=== PATIENT | male | born 1950 | race Caucasian/White ===

== ENCOUNTER 2018-05-06 12:21 | Observation (INO) ==
--- NOTE | 2018-05-06 12:45 | ED ---
HPI General Chief Complaint: Chest Pain Stated Complaint: Chest pain, Lt arm pain Time Seen by Provider: 05/06/18 12:40 Source: patient Mode of arrival: ambulatory Limitations: no limitations History of Present Illness HPI narrative: primary care doctors are Alex Dangelo. Control Engineer is Dr. England Patient has a past medical history significant for cardiac stent x3 as well as triple CABG Patient states that on 100 this morning he had chest pressure associated with pounding palpitations and radiation to his left upper extremity he presented to [place] doctors where he had an EKG and apparently was told that if it recurs to come to the emergency department. Patient states that while he is here he mentioned that he had a fall and landed on his right hip and has had pain ever since. MD complaint: Reports chest pain STEMI Alert: No Onset (ago): hour(s) (3) Duration: intermittent Onset: during rest Pain location: Reports substernal Severity: moderate Quality: Reports heaviness Pain radiation: Reports LUE Relieving factors: nothing Exacerbating factors: nothing Associated symptoms: Reports diaphoresis Related Data Home Medications Medication Instructions Recorded Confirmed Xarelto 05/06/18 albuterol sulfate 05/06/18 hydrocodone-acetaminophen [[place]] 05/06/18 prednisone 20 mg PO DAILY 05/06/18 05/06/18 Allergies Allergy/AdvReac Type Severity Reaction Status Date / Time moxifloxacin [From Avelox] Allergy Anaphylaxis Verified 05/06/18 12:28 penicillin G Allergy Hives Verified 05/06/18 12:28 sulfamethoxazole Allergy Hives Verified 05/06/18 12:28 [From Bactrim] trimethoprim [From Bactrim] Allergy Hives Verified 05/06/18 12:28 Review of Systems ROS: all other systems reviewed are negative PMFSH History History Provided By: Patient Medical History Medical History History of COPD (Acute) History of chronic pain (Acute) History of depression (Acute) History of myocardial infarction (Acute) Surgical History Surgical History History of heart artery stent (Acute) History of heart bypass surgery (Acute) Social History Social History Substance History: No History of Abuse Smoking Status: Former smoker How Often Do You Have a Drink Containing Alcohol: 2 to 4 times a month Recent Travel in [facility] within the Last 8 Weeks: No Recent Out of Country Travel within the Last 8 Weeks: No Exam Narrative Exam Narrative: GENERAL: elderly male in no apparent distress. SKIN: Warm and dry. HEAD: Atraumatic. Normocephalic. EYES: Pupils equal and round. No scleral icterus. No injection or drainage. ENT: No nasal bleeding or discharge. Mucous membranes pink and moist. NECK: Trachea midline. No JVD. CARDIOVASCULAR: Regular rate and rhythm. no rubs or gallops RESPIRATORY: No accessory muscle use. Clear to auscultation. Breath sounds equal bilaterally. GASTROINTESTINAL: Abdomen soft, non-tender, nondistended. No rebound or guarding MUSCULOSKELETAL: Extremities without clubbing, cyanosis, or edema. No obvious deformities. NEUROLOGICAL: Awake and alert. No obvious cranial nerve deficits. Motor grossly within normal limits. Five out of 5 muscle strength in the arms and legs. Normal speech. PSYCHIATRIC: Appropriate mood and affect; insight and judgment normal. Course Initial Documented Vital Signs Temperature 98 F 05/06/18 12:28 Pulse Rate 73 05/06/18 12:28 Respiratory Rate 20 05/06/18 12:28 Blood Pressure 158/81 H 05/06/18 12:28 Pulse Oximetry 98 05/06/18 12:28 Last Documented Vital Signs Temperature 98 F 05/06/18 12:28 Pulse Rate 70 05/06/18 12:41 Respiratory Rate 20 05/06/18 12:28 Blood Pressure 158/81 H 05/06/18 12:28 Pulse Oximetry 98 05/06/18 12:41 Medical Decision Making MDM Narrative Medical decision making narrative: CBC shows leukocytosis of 14,000 with 83% neutrophilia, no anemia normal platelet count Coagulation profile within normal limits, negative d-dimer Normal electrolytes Normal kidney liver and pancreatic functions Negative first set of cardiac enzymes Chest x-ray read by radiologist as no acute intrathoracic disease stable examination below is aan outpatient report of right hip xray: INDICATIONS: Right hip pain. Patient fell last week. CLINICAL DATA: This is the patient's Initial encounter. Patient reports that signs and/or symptoms have been present for 1 week and indicates a pain score of 7/10. MEDICAL/SURGICAL HISTORY: No pertinent history. COMPARISON: None FINDINGS: The right hip joint is aligned. No fracture is seen. There is mild hypertrophic change seen adjacent to the superior aspect of the greater trochanter. The pubic symphysis and right sacroiliac joint appear aligned. Fairly extensive vascular calcifications are seen. CONCLUSION: No acute abnormality is seen. Electronically signed by: Manpreet Ragsdale MD 05/06/2018 11:59 AM EST Medical Screen Exam Complete: Yes Emergency Medical Condition: Yes Medical Records Medical records reviewed: Yes I reviewed the patient's medical records. Lab Data Lab results reviewed: Yes I reviewed the patient's lab results. Result diagrams: 05/06/18 13:00 05/06/18 13:00 Lab Results 05/06/18 05/06/18 05/06/18 Range/Units 13:00 13:00 13:00 CBC w Diff Slide review pending WBC 13.8 H (4.0-11.0) th/mm3 RBC 4.15 L (4.50-5.90) mil/mm3 Hgb 12.6 L (13.0-17.0) gm/dL Hct 38.0 L (39.0-51.0) % MCV 91.6 (80.0-100.0) fL MCH 30.3 (27.0-34.0) pg MCHC 33.1 (32.0-36.0) % RDW 14.8 (11.6-17.2) % Plt Count 340 (150-450) th/mm3 MPV 8.3 (7.0-11.0) fL Neut % (Auto) 83.3 H (16.0-70.0) % Lymph % (Auto) 9.7 (9.0-44.0) % [place] % (Auto) 5.2 (0.0-8.0) % Eos % (Auto) 0.4 (0.0-4.0) % Baso % (Auto) 1.4 (0.0-2.0) % Neut # (Auto) 11.5 H (1.8-7.7) th/mm3 Lymph # (Auto) 1.3 (1.0-4.8) th/mm3 [place] # (Auto) 0.7 (0.0-0.9) th/mm3 Eos # (Auto) 0.1 (0.0-0.4) th/mm3 Baso # (Auto) 0.2 (0.0-0.2) th/mm3 WBC Differential . Diff Scan Auto diff confirmed Differential Comment . PT 10.9 (9.8-11.6) sec INR 1.1 Ratio APTT 26.0 (23.4-31.7) sec D-Dimer Quant (PE/DVT) Less than 0.19 (0.00-0.50) mg/L FEU Sodium 143 (136-145) meq/L Potassium 4.0 (3.5-5.1) meq/L Chloride 107 (98-107) meq/L Carbon Dioxide 28.0 (21.0-32.0) meq/L Anion Gap 8 (5-15) meq/L BUN 22 H (7-18) mg/dL Creatinine 0.97 (0.60-1.30) mg/dL Estimated GFR 77 L (>89) mL/min Random Glucose 110 H (74-106) mg/dL Calcium 8.7 (8.5-10.1) mg/dL Total Bilirubin 0.3 (0.2-1.0) mg/dL AST 16 (15-37) U/L ALT 17 (12-78) U/L Alkaline Phosphatase 55 (45-117) U/L Total Creatine Kinase 136 (39-308) U/L CK-MB (CK-2) 1.7 (0.5-3.6) ng/mL Troponin I Less than 0.02 L (0.02-0.05) ng/mL Total Protein 6.9 (6.4-8.2) g/dL Albumin 3.4 (3.4-5.0) g/dL Lipase 103 (73-393) U/L Imaging Data Attestation: I personally reviewed and interpreted this imaging study as follows : Radiologist's impression: Chest X-Ray 05/06/18 12:41 CONCLUSION: No acute intrathoracic disease. Stable examination. ECG Data EKG Prior to Arrival: No Attestation: I personally reviewed and interpreted this ECG as follows: Prior ECG tracings: not available for review Interpretation: Normal sinus rhythm, 60 bpm, normal intervals, motion artifact however still visible and do not see any acute ST elevation IN pattern noted Discharge Plan Discharge Disposition Patient Disposition: ED Admit(ED Internal Use Only) Discharge Condition Condition: Stable Discharge Details Diagnosis: Chest pain, rule out acute myocardial infarction Physicians Team ED Provider: Travis Chang Rxs /Orders / Referrals /Forms Prescriptions: No Action prednisone 20 mg Tablet 20 mg PO DAILY RF: 0 hydrocodone-acetaminophen [[place]] 10-325 mg Tablet RF: 0 Xarelto RF: 0 albuterol sulfate RF: 0 Discharge Instructions Patient Printed Instructions: Chest Pain (ED) Status ED Status: With Doctor
[2018-05-06 13:11] LABS: Baso # (Auto) 0.2 th/mm3 (0.0-0.2); Baso % (Auto) 1.4 % (0.0-2.0); Eos # (Auto) 0.1 th/mm3 (0.0-0.4); Eos % (Auto) 0.4 % (0.0-4.0); Hemoglobin 12.6 gm/dL (13.0-17.0); Lymph # (Auto) 1.3 th/mm3 (1.0-4.8); Lymph % (Auto) 9.7 % (9.0-44.0); Mean Corpuscular HGB Conc 33.1 % (32.0-36.0); Mean Corpuscular Hemoglobin 30.3 pg (27.0-34.0); Mean Corpuscular Volume 91.6 fL (80.0-100.0); Mean Platelet Volume 8.3 fL (7.0-11.0); Mono # (Auto) 0.7 th/mm3 (0.0-0.9); Mono % (Auto) 5.2 % (0.0-8.0); Neut # (Auto) 11.5 th/mm3 (1.8-7.7); Neut % (Auto) 83.3 % (16.0-70.0); Platelet Count 340 th/mm3 (150-450); Red Blood Count 4.15 mil/mm3 (4.50-5.90); Red Cell Distribution Width 14.8 % (11.6-17.2); White Blood Count 13.8 th/mm3 (4.0-11.0)
--- NOTE | 2018-05-06 13:19 | XR ---
EXAM DATE: 05/06/2018 1:16 PM EST AGE/SEX: 68 years / Male INDICATIONS: Chest pain for three days. CLINICAL DATA: This is the patient's initial encounter. Patient reports that signs and symptoms have been present for 3 days and indicates a pain score of 5/10. MEDICAL/SURGICAL HISTORY: None. CABG. [place] [facility] [place]. . FINDINGS: A single AP view of the chest demonstrates the lungs to be symmetrically aerated without evidence of mass, infiltrate or effusion. The cardiomediastinal contours are unremarkable and stable. There is e vidence of previous cardiothoracic surgery.. Osseous structures are intact and stable. CONCLUSION: No acute intrathoracic disease. Stable examination. Electronically signed by: Masood Montelongo MD 05/06/2018 1:17 PM EST
[2018-05-06 13:21] LABS: Chloride 107 meq/L (98-107); Sodium 143 meq/L (136-145)
[2018-05-06 13:24] LABS: Calcium 8.7 mg/dL (8.5-10.1)
[2018-05-06 13:25] LABS: Albumin 3.4 g/dL (3.4-5.0); Anion Gap 8 meq/L (5-15); Blood Urea Nitrogen 22 mg/dL (7-18); Glucose,Random 110 mg/dL (74-106); Lipase 103 U/L (73-393)
[2018-05-06 13:28] LABS: Alanine Aminotransferase 17 U/L (12-78); Aspartate Aminotransferase 16 U/L (15-37); Glomerular Filtration Rate 77 mL/min (>89); INR 1.1 Ratio; Prothrombin Time 10.9 sec (9.8-11.6)
[2018-05-06 13:29] LABS: Total Protein 6.9 g/dL (6.4-8.2)
[2018-05-06 13:31] LABS: Alkaline Phosphatase 55 U/L (45-117); Creatine Kinase 136 U/L (39-308)
[2018-05-06 13:43] LABS: Creatine Kinase MB 1.7 ng/mL (0.5-3.6)
[2018-05-06] MEDS ORDERED: Acetaminophen 500 MG Tablet PO PRN (14:03)
[2018-05-06] MEDS ORDERED: Morphine Inj 4 MG/ML Vial IV.PUSH ONE (14:20)
--- NOTE | 2018-05-06 15:24 | P.HP ---
History of Present Illness Primary Care Physician: PROVIDER NON STAFF Chief Complaint: Chest pain History of Present Illness: This is a 68-year-old male patient with a known medical history of COPD, CAD with history of cardiac stent placement status post triple bypass CABG who presented to the ED with complaints of chest pain and palpitations. Patient states that around 10 AM this morning he developed a midsternal chest pressure that was associated with sensation of palpations, he states that the pain radiated down his left extremity. Patient states that the pain was sharp in nature, rated a 10 out of 10 at its worst on pain scale, he states that the pain became better with nitroglycerin when he arrived to the ER. He admits to associated shortness of breath, nausea and sweating with the pain. Denies any vomiting. It should be noted that patient has stopped his cholesterol blood pressure medications recently stating that he just doesnt want to take them anymore. He follows with Dr. England, netbackup engineer, last seen 2 months ago when a stress test was performed for chest pain complaints which was reportedly unremarkable. Patient did have a triple bypass in August of this year. Patient also reports that he did have a fall at home, landed on his right hip and did have a outpatient x-ray, he does complain of continued pain in that area. It should be noted that patient lives at home alone, uses a wheelchair and cane at baseline for ambulation, he states that he has fallen twice this year with one fall being last week. He states that he has residual right hip pain from this fall, he did have a right hip x-ray outpatient which was reportedly unremarkable for acute fracture. Patient today complains of worsening pain without resolution with [place] at home. Patient has also sustained a left ny wound from his prior fall 6 months ago and has been following with outpatient wound care and uses Santyl. - Diagnosis (1) Chest pain, rule out acute myocardial infarction (2) Right hip pain Review of Systems All other systems reviewed negative except as stated in HPI PMFSH - History History Provided By: Patient - Medical History Medical History: Medical History (Last Reviewed 05/06/18 @ 15:20 by Mery Yan) History of COPD History of chronic pain History of depression History of myocardial infarction - Surgical History Surgical History: Surgical History (Last Reviewed 05/06/18 @ 15:20 by Mery Yan) History of heart artery stent History of heart bypass surgery - Family History Family History: Family History (Last Updated 05/06/18 @ 15:20 by Mery Yan) Other Family history non-contributory - Social History I have reviewed the patient's Social History: Yes - Tobacco History Smoking Status: Former smoker - Alcohol History How Often Do You Have a Drink Containing Alcohol: 2 to 4 times a month - Substance Use History Substance History: No History of Abuse - Travel History Recent Travel in the [place] Within the Last 8 Weeks: No Recent Travel Out of the Country Within the Last 8 Weeks: No - Immunization History Tetanus Immunization: <5 Years Medications and Allergies Active Medications: Active Medications Acetaminophen (Tylenol) 500 mg PO Q4H PRN PRN Reason: HEADACHE Nitroglycerin (Nitrostat Sl) 0.4 mg SL Q5M PRN PRN Reason: CHEST PAIN Ondansetron HCl (Zofran Inj) 4 mg IV.PUSH Q6H PRN PRN Reason: NAUSEA Sodium Chloride (Ns Flush) 2 ml IV.FLUSH UNSCH PRN PRN Reason: FLUSH AFTER USING IV ACCESS Sodium Chloride (Ns Flush) 2 ml IV.FLUSH BID TOD Allergies Allergy/AdvReac Type Severity Reaction Status Date / Time moxifloxacin [From Avelox] Allergy Anaphylaxis Verified 05/06/18 12:28 penicillin G Allergy Hives Verified 05/06/18 12:28 sulfamethoxazole Allergy Hives Verified 05/06/18 12:28 [From Bactrim] trimethoprim [From Bactrim] Allergy Hives Verified 05/06/18 12:28 Home Medications Medication Instructions Recorded Confirmed Type Xarelto 05/06/18 History albuterol sulfate 05/06/18 History hydrocodone-acetaminophen [[place]] 05/06/18 History prednisone 20 mg PO DAILY 05/06/18 05/06/18 History Exam Vital signs: Vital Signs 05/06/18 12:28 05/06/18 12:41 Temperature 98 F Pulse Rate 73 70 Respiratory Rate 20 Blood Pressure 158/81 H Pulse Oximetry 98 98 Intake & Output 05/05/18 05/06/18 05/06/18 18:59 06:59 18:59 Weight 67.6 kg Narrative: GENERAL: Well-developed, disheveled male patient in [facility]. SKIN: Warm and dry. No rash. Left ny wound, two areas noted that are open, one area roughly 4.5 cm by 1.5 cm wound edges with mild sloughing and erythema. Second area distal to the first is roughly [id number] with similar appearance. Right ny with 1x1cm necrotic area open to air with drainage. HEAD: Normocephalic. Atraumatic. EYES: Pupils equal and round. No scleral icterus. No injection or drainage. ENT: No nasal bleeding or discharge. Mucous membranes pink and moist. NECK: Supple. Trachea midline. CARDIOVASCULAR: Regular rate and rhythm. S1, S2 noted. No murmur appreciated. RESPIRATORY: No accessory muscle use. Clear to auscultation. Breath sounds equal bilaterally. GASTROINTESTINAL: Abdomen soft, non-tender, nondistended. Normoactive bowel sounds x4. MUSCULOSKELETAL: Extremities without clubbing, cyanosis, or edema. RIGHT HIP: Point tenderness to lateral right hip, with mild swelling NEUROLOGICAL: Awake and alert. No obvious cranial nerve deficits. Motor grossly within normal limits. 5/5 muscle strength in bilateral upper and lower extremities. Normal speech. PSYCHIATRIC: Appropriate mood and affect; insight and judgment normal. Results - Labs CBC & Chem 7: 05/06/18 13:00 05/06/18 13:00 Labs: Laboratory Results - last 24 hr 05/06/18 05/06/18 05/06/18 13:00 13:00 13:00 CBC w Diff Slide review pending WBC 13.8 H RBC 4.15 L Hgb 12.6 L Hct 38.0 L MCV 91.6 MCH 30.3 MCHC 33.1 RDW 14.8 Plt Count 340 MPV 8.3 Neut % (Auto) 83.3 H Lymph % (Auto) 9.7 [place] % (Auto) 5.2 Eos % (Auto) 0.4 Baso % (Auto) 1.4 Neut # (Auto) 11.5 H Lymph # (Auto) 1.3 [place] # (Auto) 0.7 Eos # (Auto) 0.1 Baso # (Auto) 0.2 WBC Differential . Diff Scan Auto diff confirmed Differential Comment . PT 10.9 INR 1.1 APTT 26.0 D-Dimer Quant (PE/DVT) Less than 0.19 Sodium Potassium Chloride Carbon Dioxide Anion Gap BUN Creatinine Estimated GFR Random Glucose Calcium Total Bilirubin AST ALT Alkaline Phosphatase Total Creatine Kinase CK-MB (CK-2) Troponin I B-Natriuretic Peptide 244 H Total Protein Albumin Lipase 05/06/18 13:00 CBC w Diff WBC RBC Hgb Hct MCV MCH MCHC RDW Plt Count MPV Neut % (Auto) Lymph % (Auto) [place] % (Auto) Eos % (Auto) Baso % (Auto) Neut # (Auto) Lymph # (Auto) [place] # (Auto) Eos # (Auto) Baso # (Auto) WBC Differential Diff Scan Differential Comment PT INR APTT D-Dimer Quant (PE/DVT) Sodium 143 Potassium 4.0 Chloride 107 Carbon Dioxide 28.0 Anion Gap 8 BUN 22 H Creatinine 0.97 Estimated GFR 77 L Random Glucose 110 H Calcium 8.7 Total Bilirubin 0.3 AST 16 ALT 17 Alkaline Phosphatase 55 Total Creatine Kinase 136 CK-MB (CK-2) 1.7 Troponin I Less than 0.02 L B-Natriuretic Peptide Total Protein 6.9 Albumin 3.4 Lipase 103 - Imaging Impressions Chest X-Ray 05/06/18 12:41 CONCLUSION: No acute intrathoracic disease. Stable examination. Caprini VTE Risk Assessment Caprini VTE Risk Assessment: Moderate/High Risk (score >= 2) Caprini Risk Assessment Model: Point Value = 1 Point Value = 2 Point Value = 3 Point Value = 5 Age 41-60 Minor surgery BMI > 25 kg/m2 Swollen legs Varicose veins or History of unexplained or recurrent spontaneous Oral contraceptives or hormone replacement Sepsis (< 1 month) Serious lung disease, including pneumonia (< 1 month) Abnormal pulmonary function Acute myocardial infarction Congestive heart failure (< 1 month) History of inflammatory bowel disease Medical patient at bed rest Age 61-74 Arthroscopic surgery Major open surgery (> 45 min) Laparoscopic surgery (> 45 min) Malignancy Confined to bed (> 72 hours) Immobilizing plaster cast Central venous access Age >= 75 History of VTE Family history of VTE Factor V Leiden Prothrombin [id number] Lupus anticoagulant Anticardiolipin antibodies Elevated serum homocysteine Heparin-induced thrombocytopenia Other congenital or acquired thrombophilia Stroke (< 1 month) Elective arthroplasty Hip, pelvis, or leg fracture Acute spinal cord injury (< 1 month) Prophylaxis Regimen: Total Risk Factor Score Risk Level Prophylaxis Regimen 0-1 Low Early ambulation 2 Moderate Order ONE of the following: *Sequential Compression Device (SCD) *Heparin 5000 units SQ BID 3-4 Higher Order ONE of the following medications: *Heparin 5000 units SQ TID *Enoxaparin/Lovenox 40 mg SQ daily (WT < 150 kg, CrCl > 30 mL/min) *Enoxaparin/Lovenox 30 mg SQ daily (WT < 150 kg, CrCl > 10-29 mL/min) *Enoxaparin/Lovenox 30 mg SQ BID (WT < 150 kg, CrCl > 30 mL/min) AND/OR *Sequential Compression Device (SCD) 5 or more Highest Order ONE of the following medications: *Heparin 5000 units SQ TID (Preferred with Epidurals) *Enoxaparin/Lovenox 40 mg SQ daily (WT < 150 kg, CrCl > 30 mL/min) *Enoxaparin/Lovenox 30 mg SQ daily (WT < 150 kg, CrCl > 10-29 mL/min) *Enoxaparin/Lovenox 30 mg SQ BID (WT < 150 kg, CrCl > 30 mL/min) AND *Sequential Compression Device (SCD) Assessment and Plan - Assessment (1) Chest pain, rule out acute myocardial infarction Code(s): R07.9 - Chest pain, unspecified Status: Acute (2) Right hip pain Code(s): M25.551 - Pain in right hip Status: Acute - Plan This is a 68-year-old male patient with a medical history of COPD, CAD with history of cardiac stents status post CABG triple bypass who presented to the ED with complaints of chest pain and palpitations. Chest pain CAD with cardiac stent placement status post triple bypass CABG in August 2017 History of hypertension, uncontrolled, patient noncompliant with his antihypertensives at home. -Patient has been admitted to the chest pain center for observation. Serial EKGs and serial troponins have been ordered for ruling out ACS purposes. Initial troponin flat. Continue to monitor trend. -EKG reviewed showing normal sinus rhythm, no ST changes to indicate any ischemia. -Will continue on cardiac telemetry, monitor for any arrhythmias overnight. -Chest x-ray reviewed showing no acute cardiac pulmonary disease noted. -CBC reviewed, mild leukocytosis noted. Likely secondary to daily steroid use or left ny wound. Will continue to monitor. -BMP reviewed, no acute findings noted. -Will continue home Xarelto, patient states on this since his CABG. Risk and benefits should be considered in continuing this at home with reports of two falls now. -Patient underwent a cardiac stress test 2 months ago which was unremarkable. Follows with Dr. England. -Chest pain is likely secondary to uncontrolled hypertension due to patient stopping his BP medications at home. Patient is unfamiliar with which medications he was getting at home. Will start antihypertensive and monitor trends. -Nitroglycerin available as needed. Borderline diabetes -Patient states he has been diet controlled, not officially diagnosed with diabetes. Checking a hemiglobin a1c. Non-healing wounds x 6 months, likely related. Fall at home Right hip pain secondary to above Left ny wound secondary to fall -Outpatient x-ray noted and reviewed showing no fracture. Mild hypertrophic changes seen adjacent to the superior aspect of the greater trochanter. -PT will be consulted, input and recommendations pending. Encouraged hot/cold therapy. -Pain control, [place] as needed. Dilaudid IV was needed per pain scale. -Wound care consulted for left ny wound as well as right ny wound. Santyl at home for left ny, continued until further recommendations. -Started Clindamycin, Patient states he took one day of Bactrim and was allergic to it therefore has not received any antibiotic treatment for wounds. -Supportive care. Closely monitor. History of COPD and asthma -On daily prednisone. Will continue for now. Stable. DVT prophylaxis: SCDs. Xarelto.
--- NOTE | 2018-05-06 17:23 | ECG ---
Date Performed: 05/06/2018 Time Performed: 12:27:50 PTAGE: 68 years EKG: Baseline artifact present Sinus rhythm INCOMPLETE RIGHT BUNDLE BRANCH BLOCK LEFT ANTERIOR FASCICULAR BLOCK MINIMAL VOLTAGE CRITERIA FOR LVH , CONSIDER NORMAL VARIANT ABNORMAL ECG NO PREVIOUS TRACING DOCTOR: Angel Rosado Interpretating Date/Time 05/06/2018 17:20:58
[2018-05-06 18:24] LABS: Creatine Kinase 136 U/L (39-308)
--- NOTE | 2018-05-06 19:06 | ECG ---
Date Performed: 05/06/2018 Time Performed: 17:14:35 PTAGE: 68 years EKG: Sinus rhythm WITH OCCASIONAL SUPRAVENTRICULAR PREMATURE COMPLEXES MARKED LEFT AXIS DEVIATION INCOMPLETE RIGHT BUN DLE BRANCH BLOCK LEFT VENTRICULAR HYPERTROPHY AND ST-T CHANGE ABNORMAL ECG Compared to prior electroc ardiogram, Premature atrial contractions are present. PREVIOUS TRACING : 05/06/2018 12.27 DOCTOR: Angel Rosado Interpretating Date/Time 05/06/2018 19:05:47
[2018-05-06 20:15] LABS: Hemoglobin A1c 5.4 % (4.3-6.0)
[2018-05-06] MEDS: Heparin - SQ 10,000 UNITS/ML Vial SQ SCH (21:09)
[2018-05-06] MEDS: HYDROmorphone PF Inj 0.5 MG/0.5 ML Syringe IV.PUSH PRN (21:10)
[2018-05-06 22:16] LABS: Creatine Kinase 104 U/L (39-308)
--- NOTE | 2018-05-06 22:18 | ECG ---
Date Performed: 05/06/2018 Time Performed: 21:26:12 PTAGE: 68 years EKG: SINUS BRADYCARDIA INCOMPLETE RIGHT BUNDLE BRANCH BLOCK LEFT ANTERIOR FASCICULAR BLOCK ABNOR MAL ECG Compared to prior electrocardiogram, PACs are no longer present. PREVIOUS TRACING : 05/06/2018 17.14 DOCTOR: Angel Rosado Interpretating Date/Time 05/06/2018 22:18:11
[2018-05-07] MEDS: HYDROmorphone PF Inj 0.5 MG/0.5 ML Syringe IV.PUSH PRN ×2 (01:44→08:21)
[2018-05-07 02:01] LABS: Clarity,Urine Clear (Clear); Glucose,Urine (UA) Negative (Negative); Leukocyte Esterase,Urine Negative (Negative); Nitrite,Urine Negative (Negative); PH,Urine 5.5 (5.0-8.5); Specific Gravity,Urine Greater/Equal 1.030 (1.002-1.035); Urobilinogen,Urine 0.2 mg/dL (Less than 2)
[2018-05-07 02:02] LABS: Bilirubin,Urine Negative (Negative); Color,Urine Amber (Yellw/Straw); Ictotest,Urine Negative (Negative)
[2018-05-07 02:04] LABS: RBC,Urine 0-3 /hpf (0-3); WBC,Urine 0-5 /hpf (0-5)
[2018-05-07 02:05] LABS: Mucus,Urine Few /lpf (Occasional)
[2018-05-07 02:10] LABS: Amphetamine Screen,Urine Neg (Neg); Barbiturate Screen,Urine Neg (Neg)
[2018-05-07 02:11] LABS: Cannabinoid Screen,Urine Neg (Neg); Cocaine Screen,Urine Neg (Neg)
[2018-05-07 02:12] LABS: Opiate Screen,Urine Pos (Neg)
[2018-05-07 06:46] LABS: Hematocrit 35.2 % (39.0-51.0); Hemoglobin 11.2 gm/dL (13.0-17.0); Mean Corpuscular HGB Conc 31.9 % (32.0-36.0); Mean Corpuscular Hemoglobin 29.4 pg (27.0-34.0); Mean Corpuscular Volume 92.2 fL (80.0-100.0); Mean Platelet Volume 8.7 fL (7.0-11.0); Platelet Count 266 th/mm3 (150-450); Red Blood Count 3.82 mil/mm3 (4.50-5.90); White Blood Count 10.1 th/mm3 (4.0-11.0)
[2018-05-07 06:47] LABS: Baso # (Auto) 0.1 th/mm3 (0.0-0.2); Baso % (Auto) 0.5 % (0.0-2.0); Eos # (Auto) 0.1 th/mm3 (0.0-0.4); Eos % (Auto) 0.5 % (0.0-4.0); Lymph # (Auto) 1.2 th/mm3 (1.0-4.8); Mono # (Auto) 0.6 th/mm3 (0.0-0.9); Neut # (Auto) 8.1 th/mm3 (1.8-7.7)
[2018-05-07 06:50] LABS: Chloride 107 meq/L (98-107); Potassium 4.7 meq/L (3.5-5.1); Sodium 142 meq/L (136-145)
[2018-05-07 06:54] LABS: Anion Gap 7 meq/L (5-15); Blood Urea Nitrogen 29 mg/dL (7-18); Calcium 8.1 mg/dL (8.5-10.1); Carbon Dioxide 28.1 meq/L (21.0-32.0); Glucose,Random 82 mg/dL (74-106)
[2018-05-07 06:58] LABS: Glomerular Filtration Rate Greater Than 89 mL/min (>89)
[2018-05-07] MEDS: predniSONE 20 MG Tablet PO SCH (08:19)
[2018-05-07] MEDS: Heparin - SQ 10,000 UNITS/ML Vial SQ SCH ×2 (08:20→21:20)
[2018-05-07] MEDS: Collagenase Oint 30 GM Tube TOPICAL SCH (08:24)
--- NOTE | 2018-05-07 12:02 | P.PNWCN ---
Wound Care Nurse Consult Description: Received wound management consult for L ny wound that is being treated by outpatient clinic with juan antonio Communicated with: ANKIT BUTTERFIELD and MENA Tam Recommendation: 1. Consult podiatry for debridement of L ny wounds 2.Please cleanse wounds to L ny and R ny with normal saline and pat dry. 3.Apply pea sized amount of hydrogel to R ny wounds and L inferior ny wound only/ 4. Cover all wounds with Xeroform cut to fit over wounds and cover with ABD pads 5. Secure dressings with rolled gauze and tape. 6. Change every other day until seen by podiatry 7. Patient needs to follow up with outpatient wound care center upon discharge for continued treatment of wounds. Wound/Pressure Injury - Wound Left Superior ny Wound Assessment: Ongoing Wound Type: Traumatic Wound Requested from Provider a Wound Care Consult: Yes Length (cm): 6.9 Width (cm): 2.6 Depth (cm): 0.1 (~0.1cm) Wound Bed Appearance: Red, Yellow Wound Bed Appearance: Wound bed presents with ~60% red granulation tissue and ~40% yellow slough, that is moist. Surrounding Tissue Appearance: Blanched/Dull Surrounding Tissue Temperature: Cool Drainage Description: Serosanguinous Drainage Amount: Scant Drainage Odor: No Odor Dressing Status: Changed Cleansing Solution: Saline Primary Dressing: Xeroform Cover Dressing: ABd pad, rolled gauze Tape Type: Transparent Wound Dressing Change Date: 05/07/18 Wound Margin Description: Wound margins are poorly defined and irregular. Left inferior ny Wound Assessment: Ongoing Wound Type: Traumatic Wound Requested from Provider a Wound Care Consult: Yes Length (cm): 3 Width (cm): 1 Depth (cm): 0 (slough) Wound Bed Appearance: Yellow Wound Bed Appearance: Wound bed presents with 100 % coverage of dry adherent yellow/brown slough Surrounding Tissue Appearance: Blanched/Dull Surrounding Tissue Temperature: Cool Drainage Amount: None Drainage Odor: No Odor Dressing Status: Changed Cleansing Solution: Saline Topical: hydrogel Primary Dressing: Xeroform Cover Dressing: ABd pad, rolled gauze Tape Type: Transparent Wound Dressing Change Date: 05/07/18 Wound Margin Description: Well defined wound margins Right superior ny Wound Type: Traumatic Wound Requested from Provider a Wound Care Consult: Yes Length (cm): 2 Width (cm): 0.8 Depth (cm): 0.4 (~0.4cm) Wound Bed Appearance: Wound bed presents with 100% dry brown tissue Surrounding Tissue Appearance: Blanched/Dull Surrounding Tissue Temperature: Cool Drainage Amount: None Drainage Odor: No Odor Cleansing Solution: Saline Topical: Hydrogel Primary Dressing: Xeroform Cover Dressing: ABd pad secured with rolled gauze Tape Type: Transparent Wound Dressing Change Date: 05/07/18 Wound Margin Description: Well defined and steep Right inferior ny Wound Type: Traumatic Wound Requested from Provider a Wound Care Consult: Yes Length (cm): 1.2 Width (cm): 0.5 Depth (cm): 0.4 (~0.4cm) Wound Bed Appearance: 100% dry brown tissue Surrounding Tissue Appearance: Blanched/Dull Surrounding Tissue Temperature: Cool Drainage Amount: None Drainage Odor: No Odor Dressing Status: Changed Cleansing Solution: Saline Topical: hydrogel Primary Dressing: Xeroform Cover Dressing: ABD pad, secured with rolled gauze Tape Type: Transparent Wound Dressing Change Date: 05/07/18 Wound Margin Description: Wound margins are well defined and steep. - Additional Information Patient seen on 3rd floor [facility] for evaluation of wound management to L ny that is being treated by outpatient clinic with Santyl ointment. Spoke with patient. Patient sees [facility] outpatient for wound care, and they have been treating is wounds on L ny with Santyl ointment. Patient reports they have been using Santyl for 4 months without wound improvement. Removed rolled gauze and telfa dressing in place to L ny to reveal two wounds Superior L ny wound is moist without active drainage or odor. Wound bed presents with ~40% moist yellow slough and ~60% red granulation tissue. Inferior L ny wound presents with 100% coverage of dry adherent yellow/brown slough. R ny is also noted with two wounds that are open to air. Both wounds to R ny presents with dry brown tissue and are ~0.4cm in depth. Patient reports burning pain around the R ny wounds. All wounds were cleansed with normal saline and patted dry. Applied Pea sized amount of hydrogel to dry wounds on the R ny and dry wound on L inferior ny. Then applied Xeroform cut to fit over wounds. Secured dressing in place with ABD pad, rolled gauze and tape. L ny superior wound was covered with Xeroform cut to fit wound and secured with ABD pad, rolled gauze and tape. Patient tolerated wound assessment fairly with some complaints of pain with cleaning of wounds. Do not recommend restarting Santyl at this time for L ny wounds.Patient will need sharp debridement of necrotic tissue for faster wound healing, therefore podiatry is recommended. Full wound measurements, description and recommendations are noted above.
--- NOTE | 2018-05-07 12:50 | P.DCO ---
- Diagnosis (1) Right hip pain Status: Acute - Physical Therapy Order: Evaluate and treat, Improve ambulation, Strength and gait training - Home Health Nursing Order: Medical education, Signs/symptoms of disease process, Nursing assessment with vital signs - Case Management Consult Case Management Consult-Home Health: Yes - Certification I have seen patient Manpreet Louie on 05/07/18. My clinical findings support the need for the requested home health care services because: Limited ability to care for self I certify that my clinical findings support that this patient is homebound because: Unsteady gait/balance, Unsafe to leave home unassisted
--- NOTE | 2018-05-07 16:16 | P.PNIM ---
Subjective Interval history: 68-year-old male who was seen and examined today for follow-up leg wound, chest pain, right hip pain. Patient laying in bed comfortably. Discussed with wound care nurse who recommended podiatry consult. Vital signs are stable. Patient remains afebrile. Physical Exam Vital signs: Vital Signs 05/06/18 16:17 05/06/18 20:00 05/06/18 20:05 Temperature 96.8 F L 98.9 F Pulse Rate 59 L 70 Respiratory Rate 20 18 Blood Pressure 172/97 H 105/57 L Pulse Oximetry 97 98 98 05/07/18 00:00 05/07/18 08:31 05/07/18 09:25 Temperature 97.4 F L 98.0 F Pulse Rate 65 57 L Respiratory Rate 18 16 Blood Pressure 121/67 125/61 Pulse Oximetry 98 95 98 05/07/18 13:36 Temperature 97.7 F Pulse Rate 68 Respiratory Rate 20 Blood Pressure 138/71 Pulse Oximetry 94 L Intake & Output 05/06/18 05/07/18 05/07/18 18:59 06:59 18:59 Intake Total 200 / 200 Output Total 1000 / 1000 Balance -800 / -800 Weight 67.6 kg 71.2 kg Intake: Oral 200 / 200 Output: Urine 1000 / 1000 Other: Date of Last Bowel Movement 05/06/18 05/06/18 Narrative: GENERAL: Well-developed, well-nourished, in no acute distress. alert and orientated HEENT: Head is normocephalic without any lesions or masses noted. Facial features are symmetric. Eyes: Extraocular muscles are intact. Conjunctivae were clear. NECK: Supple without any masses. Trachea midline no deviation. No JVD, CARDIAC: Regular rhythm, regular rate. S1/S2 are heard. No murmurs gallops or rubs. LUNGS: Clear to auscultation bilaterally. No wheeze, rhonchi or rales. No use of accessory muscles on inspiration or expiration. ABDOMEN: Soft, nontender. Nondistended. Bowel sounds heard in all 4 quadrants. No organomegaly or masses. Negative rebound, negative guarding EXTREMITIES: No edema, pulses are equal bilaterally. No cyanosis or clubbing NEUROLOGY: Mood and affect appear appropriate. Cranial nerves II through XII grossly intact. Moving all extremities, speech is clear LEFT LOWER EXTREMITY: Bandage was removed and shows a nice clean edge wound across the top of the ny. There is a lower wound that does have a black eschar. No signs of infection, or purulence. Results - Labs CBC & Chem 7: 05/07/18 05:35 05/07/18 05:35 Laboratory Results - last 24 hr 05/06/18 05/06/18 05/06/18 13:00 17:20 21:40 CBC w Diff WBC RBC Hgb Hct MCV MCH MCHC RDW Plt Count MPV Neut % (Auto) Lymph % (Auto) [place] % (Auto) Eos % (Auto) Baso % (Auto) Neut # (Auto) Lymph # (Auto) [place] # (Auto) Eos # (Auto) Baso # (Auto) WBC Differential Differential Comment Sodium Potassium Chloride Carbon Dioxide Anion Gap BUN Creatinine Estimated GFR Random Glucose Hemoglobin A1c 5.4 Calcium Total Creatine Kinase 136 104 Troponin I Less than 0.02 L Less than 0.02 L Urine Color Urine Clarity Urine pH Ur Specific [place] Urine Protein Urine Glucose (UA) Urine Ketones Urine Occult Blood Urine Nitrate Urine Bilirubin Urine Ictotest Urine Urobilinogen Ur Leukocyte Esterase Urine RBC Urine WBC Ur Squamous Epith Cells Urine Mucus Micro UA Comment Ur Microscopic Review Urine Culture Comments Urine Opiates Screen Ur Barbiturates Screen Ur Amphetamines Screen U Benzodiazepines Scrn Urine Cocaine Screen U Cannabinoids Screen 05/07/18 05/07/18 05/07/18 01:30 01:30 05:35 CBC w Diff Auto diff final WBC 10.1 RBC 3.82 L Hgb 11.2 L Hct 35.2 L MCV 92.2 MCH 29.4 MCHC 31.9 L RDW 15.0 Plt Count 266 MPV 8.7 Neut % (Auto) 81.0 H Lymph % (Auto) 12.0 [place] % (Auto) 6.0 Eos % (Auto) 0.5 Baso % (Auto) 0.5 Neut # (Auto) 8.1 H Lymph # (Auto) 1.2 [place] # (Auto) 0.6 Eos # (Auto) 0.1 Baso # (Auto) 0.1 WBC Differential . Differential Comment . Sodium Potassium Chloride Carbon Dioxide Anion Gap BUN Creatinine Estimated GFR Random Glucose Hemoglobin A1c Calcium Total Creatine Kinase Troponin I Urine Color Elva H Urine Clarity Clear Urine pH 5.5 Ur Specific [place] Greater/equal 1.030 Urine Protein Negative Urine Glucose (UA) Negative Urine Ketones Trace H Urine Occult Blood Negative Urine Nitrate Negative Urine Bilirubin Negative Urine Ictotest Negative Urine Urobilinogen 0.2 Ur Leukocyte Esterase Negative Urine RBC 0-3 Urine WBC 0-5 Ur Squamous Epith Cells 6-10 H Urine Mucus Few H Micro UA Comment Culture not ind Ur Microscopic Review Microscopic reviewed Urine Culture Comments Culture not ind Urine Opiates Screen Pos H Ur Barbiturates Screen Neg Ur Amphetamines Screen Neg U Benzodiazepines Scrn Neg Urine Cocaine Screen Neg U Cannabinoids Screen Neg 05/07/18 05:35 CBC w Diff WBC RBC Hgb Hct MCV MCH MCHC RDW Plt Count MPV Neut % (Auto) Lymph % (Auto) [place] % (Auto) Eos % (Auto) Baso % (Auto) Neut # (Auto) Lymph # (Auto) [place] # (Auto) Eos # (Auto) Baso # (Auto) WBC Differential Differential Comment Sodium 142 Potassium 4.7 Chloride 107 Carbon Dioxide 28.1 Anion Gap 7 BUN 29 H Creatinine 0.84 Estimated GFR Greater than 89 Random Glucose 82 Hemoglobin A1c Calcium 8.1 L Total Creatine Kinase Troponin I Urine Color Urine Clarity Urine pH Ur Specific [place] Urine Protein Urine Glucose (UA) Urine Ketones Urine Occult Blood Urine Nitrate Urine Bilirubin Urine Ictotest Urine Urobilinogen Ur Leukocyte Esterase Urine RBC Urine WBC Ur Squamous Epith Cells Urine Mucus Micro UA Comment Ur Microscopic Review Urine Culture Comments Urine Opiates Screen Ur Barbiturates Screen Ur Amphetamines Screen U Benzodiazepines Scrn Urine Cocaine Screen U Cannabinoids Screen Assessment and Plan - Assessment (1) Right hip pain Code(s): M25.551 - Pain in right hip Status: Acute - Plan Chest pain CAD with cardiac stent placement status post triple bypass CABG in August 2017 History of hypertension, uncontrolled, patient noncompliant with his antihypertensives at home. -Patient was requested admission for evaluation of chest pain. Patient is followed by Dr. England on a regular basis and underwent cardiac stress test 2 months ago which was unremarkable -Patient had been ruled out for acute coronary event with serial cardiac enzymes that are negative -Serial EKGs were performed which shows sinus rhythm without any changes -Nitroglycerin as needed Fall at home Right hip pain secondary to above -Outpatient x-ray was reviewed and did not indicate any acute abnormality. Mild hypertrophic changes seen adjacent to the superior aspect of the greater trochanter. -Physical therapy evaluated patient and recommended home with home health care physical therapy -Pain control, [place] as needed. Left ny wound secondary to fall -Wound care consulted for left ny wound who recommended podiatry consultation -Discussed with podiatry who indicated that there is likely not going being sharp debridement performed. Recommended Santyl -Patient is already receiving Santyl treatment by [facility] in outpatient setting -Continue clindamycin, Borderline diabetes -Patient states he has been diet controlled, not officially diagnosed with diabetes. -Hemoglobin A1c 5.4 History of COPD and asthma -Continue daily prednisone DVT prophylaxis: -Subcutaneous heparin Discharge Planning: Anticipate discharge tomorrow once cleared by podiatry.
--- NOTE | 2018-05-07 17:54 | MB ---
cc: Juan Anguiano DPM DATE: 05/07/2018 REASON FOR CONSULTATION: Evaluation of bilateral lower extremity wounds. HISTORY OF PRESENT ILLNESS: This is a 68-year-old male with a complex past medical history with complaints of chest pain and palpitations. Was admitted through the ED. The patient has been evaluated regarding his cardiac issues. Upon routine evaluation, he has had chronic wounds of his left and right lower extremities, which he has been following at outpatient wound care center, Dr. Dunlap. He has been using Santyl daily to the black, dark eschar wounds, but he has been using a collagen bandage to the more proximal wound on the left. The patient does not admit to any current smoking. He admits he is not a diabetic. He does admit that he has to take steroids due to the severe arthritis. PAST MEDICAL HISTORY: Chronic pain, COPD, depression, history of [place], heart stenting, heart bypass surgery. ALLERGIES: MOXIFLOXACIN, PENICILLIN-G, BACTRIM. ACTIVE MEDICATIONS: 1. Acetaminophen. 2. Clindamycin. 3. Collagenase. 4. Hydrocodone p.r.n. 5. Nitroglycerin p.r.n. 6. Ondansetron p.r.n. 4. Prednisone 20 mg daily scheduled. PHYSICAL EXAMINATION: VITAL SIGNS: Temperature 97.7, pulse rate 68, respiratory rate 20, blood pressure 138/71. He is saturating 94% on room air. GENERAL: This is alert and oriented gentleman seen at bedside. EXTREMITIES: It appears that he has significant muscle wasting below the patient's bilateral knees. The right lower extremity, there is noted to be a soft eschar of the pretibial area distally measuring approximately 3 cm x 1.5 cm. There is a superficial ulceration of the dorsal pretibial area just proximal to this that has similar measurements approximately 5.5 cm x 1.5 cm that appears to be fully granular, almost completely epithelialized. The distal eschar has no odor. There is no fluctuance. There is no exposed bone. Right lower extremity is examined. There is noted to be under 1 cm, two distinct eschar-type lesions at the proximal lateral calf and of the distal lateral leg, uncomplicated. No probing, tunneling or tracking. There appears to be minimal periwound erythema. There is mild pain upon pressure to the area. Distal pulses are noted to be palpable. The feet are noted to be cool. Sensation appears to be intact to light touch and deep pressure. LABORATORY FINDINGS: White blood cells 13.8, trending down to 10.1, hemoglobin and hematocrit, 11 and 35, platelet count is 266. Coagulation profile: PT 10.9, INR of 1.1. Chem-7: Sodium 142, potassium 4.7, chloride 107, carbon dioxide 28.1, BUN is 29. BNP is 244. ASSESSMENT AND PLAN: Bilateral lower extremity wounds, stable eschar with partial-thickness ulceration pretibial areas. The patient can continue outpatient followup at the wound care center with Dr. Dunlap. These are uncomplicated wounds. There is no need for sharp debridement. I would prefer to refrain from this. Continue Santyl ointment to the eschar-type wounds and a nonadherent bandage to the proximal left pink, nearly epithelial wound. Chronic steroid use is likely slowing wound healing. Reconsult as needed. SHARI Allen , 05:26 PM , 05:34 PM LEENA
--- NOTE | 2018-05-08 08:26 | P.DS ---
Date of admission: 05/06/18 14:21 Primary care physician: PROVIDER NON STAFF Attending physician on discharge: Adriana Woods Anticipated date of discharge: 05/08/18 Brief History from admission: This is a 68-year-old male patient with a known medical history of COPD, CAD with history of cardiac stent placement status post triple bypass CABG who presented to the ED with complaints of chest pain and palpitations. Patient states that around 10 AM this morning he developed a midsternal chest pressure that was associated with sensation of palpations, he states that the pain radiated down his left extremity. Patient states that the pain was sharp in nature, rated a 10 out of 10 at its worst on pain scale, he states that the pain became better with nitroglycerin when he arrived to the ER. He admits to associated shortness of breath, nausea and sweating with the pain. Denies any vomiting. It should be noted that patient has stopped his cholesterol blood pressure medications recently stating that he just doesnt want to take them anymore. He follows with Dr. England, custom shoemaker, last seen 2 months ago when a stress test was performed for chest pain complaints which was reportedly unremarkable. Patient did have a triple bypass in August of this year. Patient also reports that he did have a fall at home, landed on his right hip and did have a outpatient x-ray, he does complain of continued pain in that area. It should be noted that patient lives at home alone, uses a wheelchair and cane at baseline for ambulation, he states that he has fallen twice this year with one fall being last week. He states that he has residual right hip pain from this fall, he did have a right hip x-ray outpatient which was reportedly unremarkable for acute fracture. Patient today complains of worsening pain without resolution with [place] at home. Patient has also sustained a left ny wound from his prior fall 6 months ago and has been following with outpatient wound care and uses Santyl. DS: Diagnosis - Discharge Diagnosis (1) Right hip pain Status: Acute (2) Wound of left lower extremity Status: Acute DS: Medications - Discharge Medications Prescriptions: clindamycin HCl [Cleocin HCl] 300 mg PO Q6HR #56 cap DS: Summary Hospital Course: 68-year-old male who originally presented to the hospital for evaluation of chest pain. Patient had workup done in emergency department and the patient was having difficulty ambulating due to right hip pain from recent fall. Patient has had an evaluation done previously in the emergency department and there was no fractures appreciated. Patient states that he has been having difficulty in ambulating at home. Patient also has wounds noted on his bilateral lower extremities across the shins from falls at home. Patient has been undergoing outpatient management with [facility] using Santyl. Patient has been to the hospital and cardiac enzymes were performed with serial EKGs which does not indicate any acute abnormality or signs of acute coronary event. Patient has had recent cardiac stress testing done [address] England which was unremarkable. Patient was ruled out for any acute cardiac issue. Wound care nurse was consulted who recommended podiatry consult for possible debridement. Podiatry did evaluate the patient and indicates that patient is not a candidate at this time or need for sharp debridement. Recommend continuation of Santyl and outpatient wound care. Patient did undergo physical therapy evaluation and it was recommended by physical therapist that the patient can go home with home health care, home physical therapy. Patient is clinically stable. Has been ruled out for acute coronary event which is his presenting symptom. Patient should continue with outpatient wound care. internet and e business project manager consulted to arrange home health care with physical therapy, wound care, nursing care. Discharge patient accordingly. - Time Spent with Patient Total time spent providing and/or coordinating discharge services: Greater than 30 minutes - Quality: VTE Deep Vein Thrombosis/Pulmonary Embolism Present on Admission: No Exam Vital signs: Vital Signs 05/07/18 08:31 05/07/18 09:25 05/07/18 13:36 Temperature 98.0 F 97.7 F Pulse Rate 57 L 68 Respiratory Rate 16 20 Blood Pressure 125/61 138/71 Pulse Oximetry 95 98 94 L 05/07/18 18:39 05/07/18 20:00 05/07/18 20:10 Temperature 98.7 F 97.4 F L Pulse Rate 56 L 66 Respiratory Rate 16 17 Blood Pressure 116/58 L 120/58 L Pulse Oximetry 97 94 L 95 05/08/18 00:00 05/08/18 03:52 05/08/18 04:00 Temperature 97.5 F L 97.0 F L Pulse Rate 60 55 L 48 L Respiratory Rate 18 18 Blood Pressure 138/65 130/63 Pulse Oximetry 97 96 Intake & Output 05/07/18 05/08/18 05/08/18 18:59 06:59 18:59 Intake Total 1200 / 1200 Output Total 900 / 900 Balance 1200 / 1200 -900 / -900 Weight 75.2 kg Intake: Oral 1200 / 1200 Output: Urine 900 / 900 Other: # Voids 4 3 Date of Last Bowel Movement 05/06/18 Narrative: GENERAL: Well-developed, well-nourished, in no acute distress. alert and orientated HEENT: Head is normocephalic without any lesions or masses noted. Facial features are symmetric. Eyes: Extraocular muscles are intact. Conjunctivae were clear. NECK: Supple without any masses. Trachea midline no deviation. No JVD, CARDIAC: Regular rhythm, regular rate. S1/S2 are heard. No murmurs gallops or rubs. LUNGS: Clear to auscultation bilaterally. No wheeze, rhonchi or rales. No use of accessory muscles on inspiration or expiration. ABDOMEN: Soft, nontender. Nondistended. Bowel sounds heard in all 4 quadrants. No organomegaly or masses. Negative rebound, negative guarding EXTREMITIES: No edema, pulses are equal bilaterally. No cyanosis or clubbing NEUROLOGY: Mood and affect appear appropriate. Cranial nerves II through XII grossly intact. Moving all extremities, speech is clear LEFT LOWER EXTREMITY: Bandage was removed and shows a nice clean edge wound across the top of the ny. There is a lower wound that does have a black eschar. No signs of infection, or purulence. Results Procedures completed during hospitalization: none - Impressions ITS Impressions Chest X-Ray 05/06/18 12:41 CONCLUSION: No acute intrathoracic disease. Stable examination. Discharge Plan - Discharge Condition Condition: Stable - Discharge Order Discharge Orders: ED Use Only Admit Order (Routine); Ordered 05/06/18 Ordered By: Travis Chang - Physicians Team Primary Care Provider: NON STAFF,PROVIDER Attending Provider: Adriana Woods Other Providers: Elvira Felix ; Juan Soliman DPM
[2018-05-08] MEDS: Heparin - SQ 10,000 UNITS/ML Vial SQ SCH (09:45)
[2018-05-08] MEDS: Collagenase Oint 30 GM Tube TOPICAL SCH (09:45)
[2018-05-08] MEDS: predniSONE 20 MG Tablet PO SCH (09:45)
== END 2018-05-08 10:58 | disposition home health service (06) ==
LOC: PHEDA 12:21 → PHED 12:21 → PH3 16:10
PROVIDERS: ADMIT Internal Medicine; ATTEND Internal Medicine
DX: Z91.81 History of falling; Z95.5 Presence of coronary angioplasty implant and graft; M19.90 Unspecified osteoarthritis, unspecified site; Z79.52 Long term (current) use of systemic steroids; Z87.891 Personal history of nicotine dependence; M25.551 Pain in right hip; I25.2 Old myocardial infarction; D72.829 Elevated white blood cell count, unspecified; Z88.2 Allergy status to sulfonamides; M79.602 Pain in left arm; Z91.14 Patient's other noncompliance with medication regimen; J44.9 Chronic obstructive pulmonary disease, unspecified; I10 Essential (primary) hypertension; I25.10 Atherosclerotic heart disease of native coronary artery without angina pectoris; R73.03 Prediabetes; R07.89 Other chest pain; Z95.1 Presence of aortocoronary bypass graft